=== PATIENT | male | born 1990 ===

== ENCOUNTER 2024-03-14 06:27 | Day surgery (SDC) | payer OTHER, SELFPAY ==
[2024-03-14] VITALS (11 sets, daily range): BP systolic 119–141; BP diastolic 72–95; BMI 33.9
[2024-03-14] MEDS: NORMOSOL-R 1000 IV (11:23)
[2024-03-14] MEDS: DILAUDID 0.25 MG IV ×2 (15:58→16:07)
[2024-03-14] MEDS: ROXICODONE ORAL SOLUTION 5 MG PO (17:15)
== END 2024-03-14 17:31 | disposition home or self-care (01) ==
LOC: SDS 06:27
PROVIDERS: ATTENDING PHYSICIAN Otolaryngology Facial Plastic Surgery
DX: J35.01 Chronic tonsillitis (principal); J34.89 Other specified disorders of nose and nasal sinuses
CPT/HCPCS: 30520; 42826; 30140; 88304